=== PATIENT | female | born 1955 | race Caucasian/White ===

== ENCOUNTER 2017-04-29 09:28 | Day surgery (SDC) | payer BC ==
[2017-04-29] MEDS ORDERED: Clindamycin 900 MG IVPREMIX(* 900 MG/50 ML SDV IV ONE (09:43)
[2017-04-29] MEDS ORDERED: Naloxone* 0.4 MG/ML 1 ML VIAL IV PRN (10:17)
[2017-04-29] MEDS ORDERED: Bupivacaine 0.25% SDV* 30 ML ONE (10:29)
[2017-04-29] MEDS ORDERED: Midazolam* 1 MG/ML 2 ML VIAL (2 MG) ONE (10:37)
[2017-04-29] MEDS ORDERED: Lidocaine 2% PF * 5 ML VIAL ONE (10:37)
[2017-04-29] MEDS ORDERED: Propofol* 10 MG/ML 20 ML BTL IV PUSH ONE (10:37)
[2017-04-29] MEDS ORDERED: fentaNYL* 50 MCG/ML 2 ML VIAL (100 MCG VIAL) ONE (10:37)
[2017-04-29] MEDS ORDERED: Ondansetron INJ* 2 MG/ML VIAL ONE (12:07)
[2017-04-29 12:17] VITALS: BP 118/60
== END 2017-04-29 12:30 | disposition home or self-care (01) ==
LOC: OREAST 09:28
PROVIDERS: ATTEND Plastic Surgery
DX: G56.01 Carpal tunnel syndrome, right upper limb (principal); M65.321 Trigger finger, right index finger; M65.331 Trigger finger, right middle finger; M65.341 Trigger finger, right ring finger; M65.351 Trigger finger, right little finger
CPT/HCPCS: J2250; J2405; J2704; J3010